=== PATIENT | female | born 1985 | race African-American/Black ===

== ENCOUNTER 2022-06-01 12:15 | Inpatient (IN) | payer OTHER ==
[~2022-06-01] VITALS: Ht 157.5 cm; Wt 77.1 kg
[2022-06-01] MEDS ORDERED: ASPIRIN 81MG TABLET PO ONE (12:45)
[2022-06-01] MEDS ORDERED: LORAZEPAM 2MG/ML CPJ IV ONE (12:45)
[2022-06-01] MEDS ORDERED: SODIUM CHLORIDE 0.9% 1,000 ML IV ONE (12:45)
[2022-06-01 13:25] LABS: BASOPHILS % 0.9 % (0.0-2.0); EOSINOPHILS % 5.2 % (0.0-5.0); HEMATOCRIT. 42.3 % (36.0-48.0); HEMOGLOBIN. 14.1 g/dL (12.0-16.0); LYMPHOCYTES % 45.5 % (20.0-50.0); MEAN CORPUSCULAR HEMOGLOBIN 29.4 pg (28.0-32.0); MEAN CORPUSCULAR VOLUME 88.5 fL (81.0-99.0); MEAN PLATELET VOLUME 9.3 fl (7.4-10.4); MONOCYTES % 13.4 % (2.0-8.0); PLATELET 276 x1000/uL (130-400); RED BLOOD CELL COUNT 4.78 mill/uL (4.2-5.4); RED CELL DISTRIBUTION WIDTH 13.4 % (11.6-14.6)
[2022-06-01 13:30] LABS: CHLORIDE 104 mEq/L (98-107)
[2022-06-01 13:41] LABS: ETHANOL BLOOD < 10 mg/dL
[2022-06-01 13:46] LABS: HCG SCREEN NEGATIVE
[2022-06-01] MEDS ORDERED: NITROGLYCERIN 0.4MG TABLET SL SL PRN (14:30)
[2022-06-01] MEDS ORDERED: MAGNESIUM/ALUMINUM HYDROXIDE/SIMETHICONE 30ML UDC PO PRN (19:15)
[2022-06-01] MEDS ORDERED: DIPHENHYDRAMINE 50MG/ML VIAL IV PRN (19:15)
[2022-06-01] MEDS ORDERED: ONDANSETRON HCL 4MG/2ML INJ IV PRN (19:15)
[2022-06-01] MEDS ORDERED: CLONIDINE 0.1MG TABLET PO PRN (19:15)
[2022-06-01] MEDS ORDERED: ZOLPIDEM TARTRATE 5MG TABLET PO PRN (19:15)
[2022-06-01] MEDS ORDERED: ACETAMINOPHEN 325MG TABLET PO PRN ×2 (19:15)
[2022-06-01 20:00] VITALS: BP 127/81
[2022-06-01] MEDS ORDERED: MVI, ADULT NO.1 10 ML, FOLIC ACID 1 MG, THIAMINE HCL 100 MG in SODIUM CHLORIDE 0.9% 1,0... IV SCH ×4 (22:00)
[2022-06-01 23:56] VITALS: BP 108/69
[2022-06-02 04:00] VITALS: BP 120/76
[2022-06-02 08:00] VITALS: BP 115/81
[2022-06-02 12:00] VITALS: BP 110/67
[2022-06-02 16:00] VITALS: BP 114/76
[2022-06-02 18:14] LABS: *BARBITURATES SCREEN URINE NEGATIVE (NEGATIVE); *BENZODIAZEPINES SCREEN URINE NEGATIVE (NEGATIVE); METHADONE URINE SCREEN NEGATIVE (NEGATIVE); OPIATES URINE SCREEN NEGATIVE (NEGATIVE); PHENCYCLIDINE URINE SCREEN NEGATIVE (NEGATIVE)
[2022-06-02 18:46] LABS: *AMPHETAMINES SCREEN URINE PRESUMTIVE POSITIVE (NEGATIVE); *COCAINE SCREEN URINE PRESUMTIVE POSITIVE (NEGATIVE); CANNABINOID URINE SCREEN PRESUMTIVE POSITIVE (NEGATIVE)
[2022-06-02 20:00] VITALS: BP_SYST 106; BP_SYST 108; BP_DIAS 66; BP_DIAS 79
[2022-06-03] VITALS: BP 114/63
[2022-06-03 04:00] VITALS: BP 108/73
[2022-06-03 08:00] VITALS: BP 133/86
[2022-06-03 12:00] VITALS: BP 112/70
[2022-06-03] MEDS: OLANZAPINE 5MG TABLET ODT PO SCH ×2 (14:02→22:30)
[2022-06-03] MEDS: VALPROATE SODIUM 250MG/5ML UDC PO SCH ×3 (14:02→22:30)
[2022-06-03 16:00] VITALS: BP 99/58
[2022-06-03 20:00] VITALS: BP 99/60
[2022-06-04] VITALS: BP 98/61
[2022-06-04 01:42] LABS: UCG SCREEN NEGATIVE
[2022-06-04 04:00] VITALS: BP 105/62
[2022-06-04 08:00] VITALS: BP 104/67
[2022-06-04] MEDS: VALPROATE SODIUM 250MG/5ML UDC PO SCH ×2 (11:43→21:59)
[2022-06-04] MEDS: OLANZAPINE 5MG TABLET ODT PO SCH (11:43)
[2022-06-04 12:00] VITALS: BP 103/59
[2022-06-04 16:00] VITALS: BP 120/60
[2022-06-04 20:00] VITALS: BP 104/53
[2022-06-04] MEDS ORDERED: OLANZAPINE 5MG TABLET ODT PO SCH (21:00)
[2022-06-05] VITALS: BP 91/46
[2022-06-05 04:00] VITALS: BP 112/70
[2022-06-05 08:00] VITALS: BP 98/63
[2022-06-05 12:00] VITALS: BP 95/50
== END 2022-06-05 13:00 | disposition left against medical advice (07) | DRG 816 ==
LOC: ER 12:15 → EDBD 14:15 → 6WST 14:15 → EDBEDREQTM 14:19 → EDBEDREQ 14:19 → ENRESERV 17:19
PROVIDERS: ADMIT Internal Medicine; ATTEND Internal Medicine
DX: T40.5X1A Poisoning by cocaine, accidental (unintentional), initial encounter (principal); I47.1 Supraventricular tachycardia; I10 Essential (primary) hypertension; Z20.822 Contact with and (suspected) exposure to COVID-19; F60.0 Paranoid personality disorder; F15.90 Other stimulant use, unspecified, uncomplicated; R44.0 Auditory hallucinations; Z59.00 Homelessness unspecified; Z53.29 Procedure and treatment not carried out because of patient's decision for other reasons
CPT/HCPCS: 36415; 71045; 80053; 80305; 80320; 81025; 83880; 84484; 84703; 85025; 93005; 93970; 99285; J1200; J2060; J3411; J3490; J7030; U0003; U0005; G0480

== ENCOUNTER 2022-06-07 00:05 | Emergency (ER) | payer OTHER ==
[~2022-06-07] VITALS: Ht 160 cm; Wt 64.0 kg
[2022-06-07 00:22] VITALS: BP 124/84
== END 2022-06-07 03:19 | disposition left against medical advice (07) ==
LOC: ER 00:23
DX: Z53.21 Procedure and treatment not carried out due to patient leaving prior to being seen by health care provider (principal); I49.9 Cardiac arrhythmia, unspecified
CPT/HCPCS: 93005